=== PATIENT | male | born 1995 | race Caucasian/White ===

== ENCOUNTER 2019-04-23 14:42 | Emergency (ER) | payer OTHER ==
--- NOTE | 2019-04-23 14:52 | ER Report ---
History and Physical Time Seen By MD: 14:49 HPI/ROS CHIEF COMPLAINT: Bucked off horse HISTORY OF PRESENT ILLNESS: 23-year-old male patient presents to emergency room after having been bucked off a horse. Patient states that he was riding a ragini janee horse which is skittish. He states that something splinted and bucked him off. He states they first time that he managed landed on his feet. Patient states that he got back on and the horse was spooked again. He states that this time he is not getting bucked off and landing on his left side. He did his head, he is unsure whether had any loss of consciousness. Patient denies any nausea, vomiting or diarrhea. Patient states that he did feel very fuzzy initially. He recalls walking the horse back to the horse trailer, loading and up. He states that he did have some at[place] and then back into town. He states that he he does feel lightheaded. He does have a history of concussions. Patient states he does have some neck pain, headache. He feels that he may have broken his nose that is swollen. REVIEW OF SYSTEMS: Respiratory: No cough, no dyspnea. Cardiovascular: No chest pain, no palpitations. Gastrointestinal: No vomiting, no abdominal pain. Musculoskeletal: No back pain. Allergies: Coded Allergies: No Known Drug Allergies (Unverified , 04/23/19) Past Medical/Surgical History Patient has past medical history of concussions, fractures. Patient has surgical history of tonsillectomy. Reviewed Nurses Notes: Yes Constitutional Vital Sign - Last 24 Hours 04/23/19 04/23/19 04/23/19 04/23/19 14:42 14:46 14:52 15:00 Temp 98.5 Pulse 68 78 Resp 16 B/P (MAP) 137/94 (108) 137/94 135/82 (99) Pulse Ox 95 O2 Delivery Room Air 04/23/19 04/23/19 04/23/19 04/23/19 15:02 15:22 15:42 16:02 Pulse 69 63 72 68 Pulse Ox 94 95 94 97 04/23/19 16:22 Pulse 66 Pulse Ox 93 Physical Exam General Appearance: The patient is alert, has no immediate need for airway protection and no current signs of toxicity. Eyes: Pupils equal and round no injection. Pupils are reactive to light. Respiratory: Chest is non tender, lungs are clear to auscultation. Cardiac: regular rate and rhythm Gastrointestinal: Abdomen is soft and non tender, no masses, bowel sounds normal. Musculoskeletal: Neck: Unable to be assessed at this time secondary to c- collar. Extremities have full range of motion and are non tender. Skin: No rashes or lesions. Patient has abrasions to the forehead, nose. Patient does have swelling to the nose. Neuro: Patient is alert and oriented 4, cranial nerves II through XII grossly intact. Patient does have 3 word recall 3/3 at zero minutes and 2/3 at 5 minutes. Patient struggled with serial sevens, changing the numbers a he was tracking from, skipping over several numbers. DIFFERENTIAL DIAGNOSIS: After history and physical exam differential diagnosis was considered for head injury including but not limited to concussion, skull fracture, intraparenchymal contusion, subarachnoid, subdural and epidural hematoma. Included in the differential is nasal bone fracture, cervical spine strain. Medical Decision Making Data Points Result Diagram: 04/23/19 1514 04/23/19 1514 Laboratory Hematology Test 04/23/19 15:14 White Blood Count 8.3 k/uL (4.5-11.0) Red Blood Count 5.00 M/uL (4.00-5.60) Hemoglobin 15.9 g/dL (14.0-18.0) Hematocrit 44.3 % (42.0-52.0) Mean Corpuscular Volume 88.7 fL (80.0-96.0) Mean Corpuscular Hemoglobin 31.8 pg (26.0-33.0) Mean Corpuscular Hemoglobin Concent 35.9 g/dL (32.0-36.0) Red Cell Distribution Width 12.5 % (11.5-14.5) Platelet Count 229 K/uL (150-450) Mean Platelet Volume 8.8 fL (7.2-11.1) Neutrophils (%) (Auto) 75.5 % (39.4-72.5) H Lymphocytes (%) (Auto) 17.7 % (17.6-49.6) Monocytes (%) (Auto) 4.6 % (4.1-12.4) Eosinophils (%) (Auto) 1.8 % (0.4-6.7) Basophils (%) (Auto) 0.4 % (0.3-1.4) Nucleated RBC Relative Count (auto) 0.0 /100WBC Neutrophils # (Auto) 6.3 K/uL (2.0-7.4) Lymphocytes # (Auto) 1.5 K/uL (1.3-3.6) Monocytes # (Auto) 0.4 K/uL (0.3-1.0) Eosinophils # (Auto) 0.2 K/uL (0.0-0.5) Basophils # (Auto) 0.0 K/uL (0.0-0.1) Nucleated RBC Absolute Count (auto) 0.00 K/uL Chemistry Test 04/23/19 15:14 Sodium Level 142 mmol/L (137-145) Potassium Level 3.7 mmol/L (3.5-5.0) Chloride Level 109 mmol/L (98-107) Carbon Dioxide Level 22 mmol/L (22-30) Blood Urea Nitrogen 15 mg/dl (9-21) Creatinine 0.90 mg/dl (0.66-1.25) Glomerular Filtration Rate Calc > 60.0 Random Glucose 104 mg/dl (75-110) Calcium Level 9.5 mg/dl (8.4-10.2) Total Bilirubin 0.7 mg/dl (0.2-1.3) Aspartate Amino Transf (AST/SGOT) 25 U/L (0-35) Alanine Aminotransferase (ALT/SGPT) 36 U/L (0-56) Alkaline Phosphatase 57 U/L (0-126) Total Protein 7.3 g/dl (6.3-8.2) Albumin 4.6 g/dl (3.5-5.0) Amylase Level 94 U/L (0-110) Lipase 177 U/L (23-300) Coagulation Test 04/23/19 15:14 Prothrombin Time 13.8 seconds (12.0-14.4) Prothromb Time International Ratio 1.06 Activated Partial Thromboplast Time 31 seconds (23-35) Toxicology Test 04/23/19 15:14 Serum Alcohol < 10 mg/dl Urinalysis Test 04/23/19 15:14 Urine Color Yellow Urine Clarity Clear Urine pH 6.0 pH (4.8-9.5) Urine Specific [place] 1.012 Urine Protein Negative mg/dL (NEGATIVE) Urine Glucose (UA) Negative mg/dL (NEGATIVE) Urine Ketones Negative mg/dL (NEGATIVE) Urine Blood Negative (NEGATIVE) Urine Nitrite Negative (NEGATIVE) Urine Bilirubin Negative (NEGATIVE) Urine Urobilinogen Negative mg/dL (0.2-1.9) Urine Leukocyte Esterase Negative (NEGATIVE) Urine RBC 1 /HPF (0-2/HPF) Urine WBC <1 /HPF (0-5/HPF) Urine Squamous Epithelial Cells None /LPF (</=FEW) Urine Bacteria Negative /HPF (NONE-FEW) Urine Mucus None /HPF (NONE-FEW) EKG/Imaging Imaging SHOULDER MIN 2 VIEWS LEFT Indication: Left shoulder pain after fall from horse. Comparison: Unavailable Findings: 4 views of the left shoulder. No fracture or dislocation. No bony lesions or degenerative changes. Soft tissues are unremarkable. IMPRESSION: 1. No acute osseous abnormality left shoulder. Report Dictated By: Guevara Bettencourt at 04/23/2019 3:52 PM Report E-Signed By: Guevara Bettencourt at 04/23/2019 3:[address] Head without contrast and CT Cervical spine: Indication: Trauma. Fall from horse. Comparison: None available Technique: CT head: Axial CT images were obtained through the brain from the skull base to the vertex without administration of IV contrast. Reformatted coronal and sagittal images were also obtained. Technique: CT cervical spine: Axial CT imaging of the cervical spine was performed. 2-D sagittal and coronal CT reformats were also obtained. One of the following dose optimization techniques was utilized in the performance of this exam: Automated exposure control; adjustment of the mA and/or kV according to the patient's size; or use of an iterative reconstruction technique. Specific details can be referenced in the facility's radiology CT exam operational policy. FINDINGS: CT head: No intracranial bleed, midline shift, mass effect, extra-axial fluid collection or hydrocephalus. No abnormal density. Voss/white matter differentiation appears normal. Bony structures show no fractures or lesions. Sinuses and mastoids visualized are clear. CT cervical spine: The vertebral bodies are aligned. No fracture or facet dislocation. No bony lesions. No significant degenerative changes. Endplates are maintained. No obvious disc herniation. Prevertebral soft tissues and surrounding soft tissues are unremarkable. Lung apices are clear. IMPRESSION: 1. No acute intracranial abnormality. No skull fracture. 2. No acute osseous or acute alignment abnormality of the cervical spine. Report Dictated By: Guevara Bettencourt at 04/23/2019 4:11 PM Report E-Signed By: Guevara Bettencourt at 04/23/2019 4:20 PM CHEST SINGLE AP Indication: Left-sided pain after fall off horse.. Comparison: None available Findings: Cardiomediastinal silhouette and pulmonary vessels within normal limits. There is no focal infiltrate or lobar consolidation. No pneumothorax or pleural effusion. Abdomen is unremarkable. No acute bony abnormality. IMPRESSION: 1. No acute cardiopulmonary process. No indication of discrete rib fracture. Report Dictated By: Guevara Bettencourt at 04/23/2019 3:49 PM Report E-Signed By: Guevara Bettencourt at 04/23/2019 3:50 PM EXAMINATION: CT facial bones without IV contrast HISTORY: Trauma COMPARISON: None. TECHNIQUE: Axial images were obtained from the superior aspect of the orbits through the inferior aspect of mandible. Coronal and sagittal reformatted images were obtained from the axial source data. No IV contrast was administered. One of the following dose optimization techniques was utilized in the performance of this exam: Automated exposure control; adjustment of the mA and/ or kV according to the patient's size; or use of an iterative reconstruction technique. Specific details can be referenced in the facility's radiology CT exam operational policy. FINDINGS: Soft Tissues: Negative. Mandible/TMJ: Negative. Maxilla/pterygoid plates: Negative. Zygoma/zygomatic arches: Negative. Orbits: Negative. Nasal bones/nasal septum: Negative. Frontal bones: Negative. Sinuses: Negative. Visualized brain: Negative. IMPRESSION: No evidence of acute facial bone fracture. Report Dictated By: TIFFANY SOLORIO at 04/23/2019 3:59 PM Report E-Signed By: TIFFANY SOLORIO at 04/23/2019 4:01 PM PELVIS INDICATION: Left-sided pain after fall from horse. COMPARISON: None available FINDINGS: AP view the pelvis. No fracture or dislocation. No bony lesions or degenerative changes. Soft tissues unremarkable. IMPRESSION: No acute abnormality. Report Dictated By: Guevara Bettencourt at 04/23/2019 3:51 PM Report E-Signed By: Guevara Bettencourt at 04/23/2019 3:[address] Head without contrast and CT Cervical spine: Indication: Trauma. Fall from horse. Comparison: None available Technique: CT head: Axial CT images were obtained through the brain from the skull base to the vertex without administration of IV contrast. Reformatted coronal and sagittal images were also obtained. Technique: CT cervical spine: Axial CT imaging of the cervical spine was performed. 2-D sagittal and coronal CT reformats were also obtained. One of the following dose optimization techniques was utilized in the performance of this exam: Automated exposure control; adjustment of the mA and/or kV according to the patient's size; or use of an iterative reconstruction technique. Specific details can be referenced in the facility's radiology CT exam operational policy. FINDINGS: CT head: No intracranial bleed, midline shift, mass effect, extra-axial fluid collection or hydrocephalus. No abnormal density. Voss/white matter differentiation appears normal. Bony structures show no fractures or lesions. Sinuses and mastoids visualized are clear. CT cervical spine: The vertebral bodies are aligned. No fracture or facet dislocation. No bony lesions. No significant degenerative changes. Endplates are maintained. No obvious disc herniation. Prevertebral soft tissues and surrounding soft tissues are unremarkable. Lung apices are clear. IMPRESSION: 1. No acute intracranial abnormality. No skull fracture. 2. No acute osseous or acute alignment abnormality of the cervical spine. Report Dictated By: Guevara Bettencourt at 04/23/2019 4:11 PM Report E-Signed By: Guevara Bettencourt at 04/23/2019 4:20 PM ED Course/Re-evaluation ED Course Patient was admitted to an exam room, history and physical were obtained. Differential diagnoses were considered. On examination lungs are clear, heart is regular, abdomen is soft and nontender. Patient did have some tenderness to his neck was placed in a c-collar on arrival. Patient had some abrasions to his face. He had some swelling to his nose. An IV was started, a CBC, CMP, lactate, PT, PTT, urinalysis, alcohol screen were done. Lab results were unremarkable. A CT scan of the head, facial bones and cervical spine were done. The CT scans were read as normal. I did do a chest x-ray, pelvis x-ray and x-ray of the left shoulder. The results of those imaging were negative as well. I discussed the findings with the patient and his significant other. I believe the patient does have a concussion. Patient was alert and oriented 4, but struggled with serial sevens forgetting where he was several times as well as forgetting what he was practicing by. Patient was able to complete 3 word recall 3/3 at zero minutes an d 2/3 at 5 minutes. With the negative imaging and labs we'll go ahead and discharge him home. He is to limit his activity by pain. He is complaining of rest. I would like him to limit his screen time. He states Tylenol or ibuprofen as if her pain. He is follow-up with his primary care provider in one week for reevaluation. Patient verbalized understanding and agreement with plan. Decision to Disposition Date: Apr 23, 2019 Decision to Disposition Time: 16:33 Depart Departure Latest Vital Signs Vital Signs Date Time Temp Pulse Resp B/P (MAP) Pulse Ox O2 Delivery O2 Flow Rate FiO2 04/23/19 16:22 66 93 04/23/19 15:00 135/82 (99) 04/23/19 14:52 98.5 16 Room Air Impression: Primary Impression: Concussion Additional Impressions: Contusion of left shoulder Facial abrasion Condition: Improved Disposition: HOME OR SELF-CARE Patient Instructions: Concussion (ED) Additional Instructions: Get plenty of rest. Limit activity by pain. Limit TV and computer time. Monitor for confusion, increased irritability, uncontrollable vomiting, worsening headache or difficulty to arouse. Return to the ER if those are to occur. Follow up with your primary care provider in the next week. Take Tylenol ibuprofen Z for pain. Problem Qualifiers Primary Impression: Concussion Encounter type: initial encounter Loss of consciousness presence/duration: with LOC of 30 min or less Qualified Codes: S06.0X1A - Concussion with loss of consciousness of 30 minutes or less, initial encounter Additional Impressions: Contusion of left shoulder Encounter type: initial encounter Qualified Codes: S40.012A - Contusion of left shoulder, initial encounter Facial abrasion Encounter type: initial encounter Qualified Codes: S00.81XA - Abrasion of other part of head, initial encounter BARB POND Apr 23, 2019 14:52
[2019-04-23 15:00] VITALS: BP 135/82
[2019-04-23] MEDS ORDERED: DIPHTH/TETANUS/ACEL. PERTUSSIS IM ONE (15:05)
[2019-04-23] MEDS ORDERED: NS(*) 0.9% 1000 ML BAG 1,000 ML IV ONE (15:05)
[2019-04-23 15:29] LABS: PLATELET COUNT, AUTOMATED 229 K/uL (150-450)
[2019-04-23 15:36] LABS: INR 1.06
--- NOTE | 2019-04-23 15:58 | RADIOLOGY IMAGING REPORT ---
FACILITY: [facility] - [place] PATIENT NAME: Thor Vee : 1995 MR: [id number] V: [id number] EXAM DATE: ORDERING PHYSICIAN: BARB POND TECHNOLOGIST: Location: [facility] Patient: Thor Vee : 1995 Visit/Account:[id number] Date of Sevice: 04/23/2019 CHEST SINGLE AP Indication: Left-sided pain after fall off horse.. Comparison: None available Findings: Cardiomediastinal silhouette and pulmonary vessels within normal limits. There is no focal infiltrate or lobar consolidation. No pneumothorax or pleural effusion. Abdomen is unremarkable. No acute bony abnormality. IMPRESSION: 1. No acute cardiopulmonary process. No indication of discrete rib fracture. Report Dictated By: Guevara Bettencourt at 04/23/2019 3:49 PM Report E-Signed By: Guevara Bettencourt at 04/23/2019 3:50 PM WSN:[id number]
--- NOTE | 2019-04-23 15:59 | RADIOLOGY IMAGING REPORT ---
FACILITY: [facility] - [place] PATIENT NAME: Thor Vee : 1995 MR: [id number] V: [id number] EXAM DATE: ORDERING PHYSICIAN: BARB POND TECHNOLOGIST: [place] [facility] [place] V[place] : 1995 Visit/Account:[id number] Date of Sevice: 04/23/2019 PELVIS INDICATION: Left-sided pain after fall from horse. COMPARISON: None available FINDINGS: AP view the pelvis. No fracture or dislocation. No bony lesions or degenerative changes. Soft tissues unremarkable. IMPRESSION: No acute abnormality. Report Dictated By: Guevara Bettencourt at 04/23/2019 3:51 PM Report E-Signed By: Guevara Bettencourt at 04/23/2019 3:52 PM WSN:[id number]
--- NOTE | 2019-04-23 16:02 | RADIOLOGY IMAGING REPORT ---
FACILITY: [facility] PATIENT NAME: Thor Vee : 1995 MR: [id number] V: [id number] EXAM DATE: ORDERING PHYSICIAN: BARB POND TECHNOLOGIST: [place] [facility] [place] Thor Vee : 1995 Visit/Account:[id number] Date of Sevice: 04/23/2019 SHOULDER MIN 2 VIEWS LEFT Indication: Left shoulder pain after fall from horse. Comparison: Unavailable Findings: 4 views of the left shoulder. No fracture or dislocation. No bony lesions or degenerative changes. So ft tissues are unremarkable. IMPRESSION: 1. No acute osseous abnormality left shoulder. Report Dictated By: Guevara Bettencourt at 04/23/2019 3:52 PM Report E-Signed By: Guevara Bettencourt at 04/23/2019 3:54 PM WSN:[id number]
--- NOTE | 2019-04-23 16:10 | RADIOLOGY IMAGING REPORT ---
FACILITY: [facility] - [place] PATIENT NAME: Thor Vee : 1995 MR: [id number] V: [id number] EXAM DATE: ORDERING PHYSICIAN: BARB POND TECHNOLOGIST: Location: [facility] [place] Patient: Thor Vee : 1995 Visit/Account:[id number] Date of Sevice: 04/23/2019 EXAMINATION: CT facial bones without IV contrast HISTORY: Trauma COMPARISON: None. TECHNIQUE: Axial images were obtained from the superior aspect of the orbits through the inferior as pect of mandible. Coronal and sagittal reformatted images were obtained from the axial source data. N o IV contrast was administered. One of the following dose optimization techniques was utilized in the performance of this exam: Autom ated exposure control; adjustment of the mA and/or kV according to the patient's size; or use of an i terative reconstruction technique. Specific details can be referenced in the facility's radiology C T exam operational policy. FINDINGS: Soft Tissues: Negative. Mandible/TMJ: Negative. Maxilla/pterygoid plates: Negative. Zygoma/zygomatic arches: Negative. Orbits: Negative. Nasal bones/nasal septum: Negative. Frontal bones: Negative. Sinuses: Negative. Visualized brain: Negative. IMPRESSION: No evidence of acute facial bone fracture. Report Dictated By: TIFFANY SOLORIO at 04/23/2019 3:59 PM Report E-Signed By: TIFFANY SOLORIO at 04/23/2019 4:01 PM WSN:[id number]
--- NOTE | 2019-04-23 16:27 | RADIOLOGY IMAGING REPORT ---
FACILITY: [facility] PATIENT NAME: Thor Vee : 1995 MR: [id number] V: [id number] EXAM DATE: [id number] ORDERING PHYSICIAN: BARB POND TECHNOLOGIST: [place] [facility] [place] Patient: Thor Vee : 1995 Visit/Account:[id number] Date of Sevice: 04/23/2019 CT Head without contrast and CT Cervical spine: Indication: Trauma. Fall from horse. Comparison: None available Technique: CT head: Axial CT images were obtained through the brain from the skull base to the verte x without administration of IV contrast. Reformatted coronal and sagittal images were also obtained. Technique: CT cervical spine: Axial CT imaging of the cervical spine was performed. 2-D sagittal and coronal CT reformats were also obtained. One of the following dose optimization techniques was utilized in the performance of this exam: Autom ated exposure control; adjustment of the mA and/or kV according to the patient's size; or use of an i terative reconstruction technique. Specific details can be referenced in the facility's radiology C T exam operational policy. FINDINGS: CT head: No intracranial bleed, midline shift, mass effect, extra-axial fluid collection or hydrocephalus. No abnormal density. Voss/white matter differentiation appears normal. Bony structures show no fractures or lesions. Sinuses and mastoids visualized are clear. CT cervical spine: The vertebral bodies are aligned. No fracture or facet dislocation. No bony lesions. No significant d egenerative changes. Endplates are maintained. No obvious disc herniation. Prevertebral soft tissues and surrounding soft tissues are unremarkable. Lung apices are clear. IMPRESSION: 1. No acute intracranial abnormality. No skull fracture. 2. No acute osseous or acute alignment abnormality of the cervical spine. Report Dictated By: Guevara Bettencourt at 04/23/2019 4:11 PM Report E-Signed By: Guevara Bettencourt at 04/23/2019 4:20 PM WSN:[id number]
--- NOTE | 2019-04-23 16:28 | RADIOLOGY IMAGING REPORT ---
FACILITY: [facility] PATIENT NAME: Thor Vee : 1995 MR: [id number] V: [id number] EXAM DATE: [id number] ORDERING PHYSICIAN: BARB POND TECHNOLOGIST: [place] [facility] [place] Patient: Thor Vee : 1995 Visit/Account:[id number] Date of Sevice: 04/23/2019 CT Head without contrast and CT Cervical spine: Indication: Trauma. Fall from horse. Comparison: None available Technique: CT head: Axial CT images were obtained through the brain from the skull base to the verte x without administration of IV contrast. Reformatted coronal and sagittal images were also obtained. Technique: CT cervical spine: Axial CT imaging of the cervical spine was performed. 2-D sagittal and coronal CT reformats were also obtained. One of the following dose optimization techniques was utilized in the performance of this exam: Autom ated exposure control; adjustment of the mA and/or kV according to the patient's size; or use of an i terative reconstruction technique. Specific details can be referenced in the facility's radiology C T exam operational policy. FINDINGS: CT head: No intracranial bleed, midline shift, mass effect, extra-axial fluid collection or hydrocephalus. No abnormal density. Voss/white matter differentiation appears normal. Bony structures show no fractures or lesions. Sinuses and mastoids visualized are clear. CT cervical spine: The vertebral bodies are aligned. No fracture or facet dislocation. No bony lesions. No significant d egenerative changes. Endplates are maintained. No obvious disc herniation. Prevertebral soft tissues and surrounding soft tissues are unremarkable. Lung apices are clear. IMPRESSION: 1. No acute intracranial abnormality. No skull fracture. 2. No acute osseous or acute alignment abnormality of the cervical spine. Report Dictated By: Guevara Bettencourt at 04/23/2019 4:11 PM Report E-Signed By: Guevara Bettencourt at 04/23/2019 4:20 PM WSN:[id number]
== END 2019-04-23 16:48 | disposition home or self-care (01) ==
LOC: ER 14:45
DX: S06.0X1A Concussion with loss of consciousness of 30 minutes or less, initial encounter (principal); S40.012A Contusion of left shoulder, initial encounter; S00.81XA Abrasion of other part of head, initial encounter
CPT/HCPCS: 70450; 70486; 71045; 72125; 72170; 73030; 80320; 81001; 82150; 83690; 85025; 85610; 85730; 96360; 99284; J7030; 82040; 82247; 82310; 82374; 82435; 82565; 82947; 84075; 84132; 84155; 84295; 84450; 84460; 84520